=== PATIENT | male | born 1980 | race Caucasian/White ===

== ENCOUNTER 2025-08-12 10:08 | Outpatient (CLI) | payer OTHER | END 2025-08-12 10:09 | disposition home or self-care (01) | LOC: BICULT 10:08 | PROVIDERS: ATTEND Internal Medicine | DX: K70.31 Alcoholic cirrhosis of liver with ascites (principal); K80.20 Calculus of gallbladder without cholecystitis without obstruction | CPT/HCPCS: 76705 ==

== ENCOUNTER 2025-11-18 11:13 | Outpatient (CLI) | payer OTHER | END 2025-11-18 11:14 | disposition home or self-care (01) | LOC: BICRAD 11:13 | PROVIDERS: ATTEND Family Medicine | DX: R05.2 Subacute cough (principal) | CPT/HCPCS: 71046 ==